=== PATIENT | male | born 1985 ===

== ENCOUNTER 2018-08-03 11:28 | Emergency (ER) | payer BC, OTHER ==
[2018-08-03 15:45] VITALS: BP 118/70; PULSE 80; RESP 16; TEMP 98.4; O2SAT 99
--- NOTE | 2018-08-03 15:45 | ED PDOC ---
HPI: Back Time Seen by Provider: 08/03/18 12:04 Chief Complaint (Nursing): Back Pain Chief Complaint (Provider): Left lower back pain History Per: Patient History/Exam Limitations: no limitations Onset/Duration Of Symptoms: Days Current Symptoms Are (Timing): Still Present Additional Complaint(s): 32 year old male presents to the ED for evaluation of left lower back pain radiating into his left buttock. 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 Denies taking medications at home, incontinence, fever, and chills. PMD: none provided Past Medical History Reviewed: Historical Data, Nursing Documentation, Vital Signs - Medical History PMH: No Chronic Diseases Denies: Chronic Kidney Disease - Surgical History Surgical History: No Surg Hx - Family History Family History: States: Unknown Family Hx - Social History Current smoker - smoking cessation education provided: No Alcohol: Social Drugs: Denies - Home Medications Home Medications: Ambulatory Orders Medication Instructions Recorded Ibuprofen [Motrin] 600 mg PO Q8 PRN #21 tab 10/17/15 Cetirizine HCl [Zyrtec] 10 mg PO DAILY #15 tab.rapdis 07/19/16 Naproxen [Naprosyn Tab] 375 mg PO Q8 PRN #21 tab 07/19/16 Cyclobenzaprine [Cyclobenzaprine 10 mg PO Q8H #20 tab 08/03/18 HCl] Ibuprofen [Motrin Tab] 800 mg PO Q6H PRN #20 tab 08/03/18 - Allergies Allergies/Adverse Reactions: Allergies Allergy/AdvReac Type Severity Reaction Status Date / Time No Known Allergies Allergy Verified 07/19/16 11:37 Review of Systems ROS Statement: Except As Marked, All Systems Reviewed And Found Negative Constitutional: Negative for: Fever, Chills Genitourinary Male: Negative for: Incontinence Musculoskeletal: Positive for: Back Pain (left lower back radiating into left buttock) Physical Exam - Reviewed Nursing Documentation Reviewed: Yes Vital Signs Reviewed: Yes - Physical Exam Appears: Positive for: No Acute Distress Cardiovascular/Chest: Positive for: Regular Rate, Rhythm Respiratory: Positive for: Normal Breath Sounds. Negative for: Respiratory Distress Gastrointestinal/Abdominal: Positive for: Normal Exam, Soft. Negative for: Tenderness Back: Positive for: Normal Inspection, Vertebral Tenderness. Negative for: L CVA Tenderness, R CVA Tenderness Extremity: Positive for: Normal ROM - ECG O2 Sat by Pulse Oximetry: 99 (RA) Pulse Ox Interpretation: Normal Medical Decision Making Medical Decision Making: Time: 1322 Initial Impression: back pain Initial Plan: --Flexeril 10mg PO --Ibuprofen 600mg PO --Lumbar Spine XR 1540 Patient stable for discharge. Explained importance of following up with ortho and discussed stretches to help improve pain. Scribe Attestation: Documented by Barbara Denny, acting as a scribe for Cassie Olson PA-C Provider Scribe Attestation: All medical record entries made by the Scribe were at my direction and personally dictated by me. I have reviewed the chart and agree that the record accurately reflects my personal performance of the history, physical exam, medical decision making, and the department course for this patient. I have also personally directed, reviewed, and agree with the discharge instructions and disposition. Disposition - Clinical Impression Clinical Impression: Sciatica - Patient ED Disposition Is Patient to be Admitted: No Counseled Patient/Family Regarding: Diagnosis, Need For Followup, Rx Given - Disposition Disposition: Routine/Home Disposition Time: 15:40 Condition: IMPROVED Prescriptions: Cyclobenzaprine [Cyclobenzaprine HCl] 10 mg PO Q8H #20 tab Ibuprofen [Motrin Tab] 800 mg PO Q6H PRN #20 tab PRN Reason: Pain Instructions: Sciatica, Sciatica Exercises Forms: [employer] (Fijian) Print Language: GIBRALTARIAN
--- NOTE | 2018-08-03 16:05 | RAD ---
Date of service: 08/03/2018 PROCEDURE: Radiographs of the Lumbar Spine. HISTORY: back pain s/p fall, x 2 years COMPARISON: No prior. FINDINGS: BONES: Normal alignment. No listhesis. No fracture. DISC SPACES: Unremarkable. OTHER FINDINGS: None. IMPRESSION: Unremarkable radiographs of the lumbar spine.
== END 2018-08-03 15:47 | disposition home or self-care (01) ==
LOC: H.ER 11:28
DX: M54.30 Sciatica, unspecified side (principal)